=== PATIENT | female | born 1990 | race Hispanic/Latino ===

== ENCOUNTER 2016-08-02 16:25 | Emergency (ER) | payer OTHER ==
[~2016-08-02] VITALS: Ht 149.9 cm; Wt 63.6 kg
[~2016-08-02 16:25] MED LIST: HYDR-3797 PO; NOMED
[2016-08-02 16:30] VITALS: BP 148/92; PULSE 101; RESP 20; O2SAT 100
--- NOTE | 2016-08-02 16:40 | ED.REPORT ---
HPI-General Illness Date of Service Aug 02, 2016 ED Provider: Dr. Coronado Pt is a 25 y/o female w/ a hx of anxiety presenting to the ED c/o intermittent left eye vision changes onset yesterday. The patient has been experiencing episodes of left eyelid numbness and paresthesias with radiation about mcfp up the forehead which spreads to the right forehead which last about 2 seconds at a time with varying duration between each episode. She states these episodes cause her left eye blurriness and sensation of swelling and drooping of the left eyelid. She denies injury to the eye, focal numbness or weakness, speech changes, MADRID. The patient does not wear contacts or glasses. She found out she was 5 days ago. She was not trying to get but was having unprotected sex without control. This is her 3rd . She also reports sharp left-sided chest pain with radiation to the left arm which has been occurring intermittently for 2 months. She has spoken with her PCP about this and he told her it was likely caused by anxiety. She has no cardiac risk factors and no family history of cardiac disease. Nursing Notes Stated Complaint: LEFT EYEBROW/EYE NUMBNESS, BLURRED VISION Chief Complaint: Eye Nursing Notes Reviewed: Yes Allergies: Coded Allergies: amoxicillin (Verified Allergy, Unknown, 05/08/16) Scheduled PRN Hydroxyzine Pamoate (HydrOXYzine Pamoate) 25 Mg Capsule 25 MG PO BID PRN PRN For Anxiety or Agitation Miscellaneous Medications No Historical Medication (No Historical Medication) Ea General Time Seen by MD: 16:40 Chief Complaint Other (left eye changes) Hx Obtained From: Patient Arrived By: Walk-in Sudden in Onset?: No Onset Occurred: Yesterday Symptom Duration: Intermittent Location: : Chest Quality: Sharp Severity: Current: No pain currently Severity: Maximum: Mild Similar Sx Previous: No Past Medical History Past Medical History Anxiety Past Surgical History Reports: Family History No history of migraines or aneurysm Smoking History Never Smoker Social History Alcohol Use: "Social" Drug Use: THC Other Social History: Good social support, Local resident Ambulatory Status Independent Review of Systems Full Review of Systems Constitutional: Denies: Chills, Fever Eyes: Reports: Blurred left, Denies: Blurred right Respiratory: Denies: Non-productive cough, Shortness of breath Cardiovascular: Reports: Chest pain, Denies: Dyspnea on exertion GI: Denies: Abdominal pain, Diarrhea, Nausea, Vomiting Neurologic: Reports: Numbness, Denies: Abnormal movement, Bladder dysfunction, Bowel dysfunction, Change LOC , Confusion, Dizziness, Focal weakness, Headache, Lightheaded, Problem walking, Seizure, Shaking, Slurred speech, Spinning sensation, Syncope, Unable to speak, Weakness Complete sys rev & neg: except as marked. Physical Exam Vital Signs Vital Signs Date Time Temp Pulse Resp B/P Pulse Ox O2 Delivery O2 Flow Rate FiO2 08/02/16 18:36 36.6 101 20 148/92 100 Room Air 08/02/16 16:30 36.6 101 20 148/92 100 Room Air Initial VS: Reviewed, Vital signs abnormal Neck: Supple, Full range of motion Respiratory: Breath sounds normal, Clear to auscultation, No respiratory distress Abdomen / GI: Soft, Non-tender Skin: Warm, Dry, No cyanosis General/Constitutional: Awake, Alert, No acute distress, Well appearing, Well developed, Well hydrated, Well nourished, Cooperative, Not toxic appearing Behavior: Positive: Anxious Head / Eyes: Atraumatic, Normocephalic, PERRL, EOMI, No nystagmus, No periorbital redness, No periorbital swelling, No photophobia, No scleral icterus , Conjunctiva NL, Cornea clear, Eyelids NL, Fundi NL, Visual acuity NL (20/20) No papilledema All cranial nerves evaluated and are normal except for some subjective diminished sensation of the left side of face ENT: Atraumatic, Airway patent, Mucous membranes moist, Pharynx NL Uvula midline Cardiovascular: Regular rhythm, Heart sounds NL, No gallop, No murmurs, No rubs , Cap refill not delayed, Peripheral circulation NL Heart Rate / Rhythm: Positive: Tachycardia (borderline, 108) Upper Extremities Upper Extremity / MS: Atraumatic, Inspection NL, Full range of motion, No swelling, Non-tender, No erythema, No deformity, Neurologic intact, Vascular intact, No ligamentous injury, Tendon function NL, No compartment syndrome, No circumferential injury, No clubbing/cyanosis, No edema Neurologic: Oriented X3, Speech NL, No motor deficits, No sensory deficits, CN II - XII intact, Cerebellar NL, Memory NL Psychiatric: Mood NL, Not suicidal, Not homicidal, No hallucinations, Cognitive function NL, Judgment/insight NL, Thought content NL Abnormal Mood/Affect: Positive: Anxious Interpretation & Diagnostics ECG Interpretation ECG Interpretation: Sinus tachycardia rate 108 Time: 17:21 Interpreted by: ED physician Normal ECG Interpretation: Normal sinus rhythm, No acute ischemic changes, Normal QRS, Normal axis, Normal intervals, No change from prior ECGs, Adequate tracing Re-Eval/Medical Decision Med Decision/Clinical Course 25-year-old female multigravida with a history of significant anxiety presents with vague symptoms of eyelid and left facial numbness as well as blurred vision which occur intermittently. Her eye exam today here is completely normal including a good fundal exam. Visual acuity is 20/20 bilaterally. Cranial nerves are evaluated and are normal. She also mentions that she is quite concerned about ongoing left upper chest pain and pain down her left arm that does not occur in an nerve distribution. She has no weakness of her upper extremities. Her lung sounds are clear and equal bilaterally. She is very anxious appearing and becomes tearful during multiple parts of our exam and conversation today. I reviewed recent lab work that she had drawn within the past 3 months as well as a head CT that was done within the last year. I let her know that it appears that all of her symptoms are related to anxiety and this is what her primary care provider who knows her well has been telling her. Unfortunately I was unable to give her benzos or hydroxyzine due to contraindications in . She is currently 5-6 weeks . I think the best solution for her would be starting an SSRI although she will not have effects of this medication until several weeks after starting the medication. I am not comfortable starting this in the ER as patient will need close follow- up and I advised her to talk with her PCP in this regard. Given my clinical suspicion for anxiety, the normal recent tests, and normal vital signs, as well as normal physical exam. I deferred doing x-rays. EKG showed only mild sinus tachycardia with no other changes. Lower extremities had no findings consistent with DVT. Patient appears reassured but still anxious and I strongly believe she will benefit from treatment with SSRI Time of Eval: 17:56 Re-Evaluation/Progress Note: Pt rechecked. She still appears anxious and becomes tearful when I assure her that there is no emergent condition at this time. Informed pt of plan for treatment. Pt understands and agrees with plan for treatment. F/U and RTER warnings given. All questions addressed. Counseled Regarding: Diagnosis, Need for follow-up, When/why to return to ED Discharge & Departure Primary Impression: Anxiety Additional Impressions: Chest pain Chest pain type: unspecified Qualified Code: R07.9 - Chest pain, unspecified Numbness Disposition: Home Discharge Condition All VS Reviewed: Yes Condition: Stable Patient Instructions: Generalized Anxiety Disorder (ED) Additional Instructions: Your physical exam was completely normal other than some subjective diminished sensation. The cause of your symptoms is unclear although they may be the product of anxiety. There are no indications that this is a stroke or other dangerous condition. The EKG was normal. Do not take Hydroxyzine or benzodiazepines in the first trimester of , it is contraindicated. Please discuss anxiety medications with your primary care doctor, an SSRI may be considered. Return to the emergency department for worsening numbness of your eye, one- sided arm or leg numbness or weakness, severe headache, persistent vomiting, severe chest pain, or for other concerning symptoms. Follow-up with your primary care doctor next week. Referrals: Akshat Kaur (PCP) eDsiree Attestation Portions of this note were transcribed by Pedro Luis Huff. I, Dr. Coronado personally performed the history, physical exam and medical decision-making; I reviewed and confirmed the accuracy of the information in the transcribed note. Signed by Desiree Crooks, 08/02/16 - [id number] copies to: Akshat Kaur Gary R DO Aug 02, 2016 16:40 PEDRO LUIS HUFF Aug 02, 2016 17:21 Jesus Manuel Coronado DO Aug 02, 2016 16:40 PEDRO LUIS HUFF Aug 02, 2016 17:21
[2016-08-02 18:36] VITALS: BP 148/92; PULSE 101; RESP 20; O2SAT 100
== END 2016-08-02 18:37 | disposition home or self-care (01) ==
LOC: SED 16:25
DX: O99.341 Other mental disorders complicating pregnancy, first trimester (principal); F41.9 Anxiety disorder, unspecified; Z3A.01 Less than 8 weeks gestation of pregnancy; Z88.1 Allergy status to other antibiotic agents

== ENCOUNTER 2017-01-21 00:44 | Emergency (ER) | payer OTHER ==
[~2017-01-21] VITALS: Ht 124.5 cm; Wt 66.8 kg
[2017-01-21 02:10] VITALS: BP 114/71; PULSE 118; RESP 17; O2SAT 98
--- NOTE | 2017-01-21 03:49 | ED.REPORT ---
HPI-General Illness Date of Service Jan 21, 2017 ED Provider: Papo Palma MD Pt is a 30 week old 26 y/o female who presents to the ED c/o vomiting onset earlier today. She describes her vomiting as acidic bile. Additional symptoms include cough, chest pain that radiates to shoulder blades, back pain, and neck pain. She denies bloody cough. Pt was checked in at the ER, and then sent upstairs to the [facility] to check on the fetus before she came back. Nursing Notes Stated Complaint: VOMITING,CHEST PAIN, AND BACK PAIN Chief Complaint: General Complaint Nursing Notes Reviewed: Yes Allergies: Coded Allergies: amoxicillin (Verified Allergy, Unknown, 01/21/17) Scheduled Famotidine (Pepcid) 20 Mg Tablet 20 MG PO BID Scheduled PRN Hydroxyzine Pamoate (HydrOXYzine Pamoate) 25 Mg Capsule 25 MG PO BID PRN PRN For Anxiety or Agitation Ondansetron ODT (Ondansetron ODT) 8 Mg Tab.rapdis 8 MG PO QID PRN PRN For Nausea Miscellaneous Medications No Historical Medication (No Historical Medication) Ea General Time Seen by MD: 03:48 Chief Complaint Vomiting Hx Obtained From: Patient Arrived By: Walk-in Sudden in Onset?: Yes Quality: Painful Severity: Current: Moderate Severity: Maximum: Moderate Recent Healthcare: Recent doctor visit Similar Sx Previous: No Past Medical History Past Medical History Anxiety Past Surgical History Reports: Family History No history of migraines or aneurysm Smoking History Never Smoker Social History Alcohol Use: "Social" Drug Use: THC Other Social History: Good social support, Local resident Ambulatory Status Independent Review of Systems Full Review of Systems Constitutional: Denies: Chills, Fever Respiratory: Reports: Non-productive cough, Denies: Prod cough, bloody Cardiovascular: Reports: Chest pain (radiates to shoulder blades ) GI: Reports: Nausea, Vomiting Musculoskeletal: Reports: Back pain, Neck pain Complete sys rev & neg: except as marked. Physical Exam Vital Signs Vital Signs Date Time Temp Pulse Resp B/P Pulse Ox O2 Delivery O2 Flow Rate FiO2 01/21/17 02:10 37.3 118 17 114/71 98 Room Air Initial VS: Reviewed Head / Eyes: Atraumatic, Normocephalic Neck: Supple, Full range of motion Extremities: Vascular intact, Neuro intact, No swelling, No tenderness Skin: Warm, Dry, No cyanosis Neurologic: Alert, Oriented, Nonfocal Psychiatric: Mood/affect normal, Behavior normal, Normal thought content General/Constitutional: Awake, Alert Sitting upright, uncomfortable Respiratory / Chest: Atraumatic, Breath sounds NL, Breath sounds = bilat, No respiratory distress Cardiovascular: Heart rate NL, Regular rhythm, Heart sounds NL Abdomen: Atraumatic Gravid Re-Eval/Medical Decision Med Decision/Clinical Course 26-year-old currently thirty weeks complains of acid reflux symptoms and cough which is painful. Improved here with GI cocktail and Pepcid. Home with Pepcid. Advised to avoid too many Tums, which she has been eating and quantity. Follow-up with PCP. Source of Hx: Old records Time of Eval: 05:09 Patient Status: Condition improved Re-Evaluation/Progress Note: Patient rechecked. Discussed plan for discharge. Patient understands and agrees with plan. F/U instructions and RTER warnings given. All questions addressed at this time. Counseled Regarding: Diagnosis, Lab results, Need for follow-up, When/why to return to ED Discharge & Departure Primary Impression: Bile reflux esophagitis Additional Impressions: Third trimester Vomiting Vomiting type: unspecified Vomiting Intractability: unspecified Nausea presence: with nausea Qualified Code: R11.2 - Nausea with vomiting, unspecified Disposition: Home Discharge Condition All VS Reviewed: Yes Condition: Stable Patient Instructions: Esophagitis (ED), Gastroesophageal Reflux Disease (ED) Additional Instructions: Eat small frequent feedings. Avoid fats, acids, spicy foods, alcohol and caffeine and chocolate. Begin Pepcid twice daily. Begin Zofran if needed for nausea, to four times daily. Follow-up with your doctor in the office. Return if any immediate issues. Referrals: Akshat Kaur (PCP) Scribe Attestation Portions of this note were transcribed by Natalia Smith. I, Dr. Palma, personally performed the history, physical exam and medical decision-making; I reviewed and confirmed the accuracy of the information in the transcribed note. copies to: Akshat Kaur Christopher W MD Jan 21, 2017 03:49 Natalia Smith Jan 21, 2017 04:02
[2017-01-21] MEDS ORDERED: Alum-Mag Hydrox-Simeth 30 mL Suspension PO ONE (04:15)
[2017-01-21] MEDS ORDERED: Ondansetron 8 mg ODT Tablet PO ONE (04:15)
[2017-01-21] MEDS ORDERED: ONDA8TAB10 PO (05:18)
[2017-01-21] MEDS ORDERED: FAMO20T PO (05:18)
== END 2017-01-21 05:30 | disposition home or self-care (01) ==
LOC: SED 00:44
DX: O99.613 Diseases of the digestive system complicating pregnancy, third trimester (principal); O21.0 Mild hyperemesis gravidarum; K21.0 Gastro-esophageal reflux disease with esophagitis; F41.9 Anxiety disorder, unspecified; Z88.1 Allergy status to other antibiotic agents; Z3A.30 30 weeks gestation of pregnancy